=== PATIENT | female | born 1945 | race Caucasian/White ===

== ENCOUNTER 2018-06-27 07:07 | Day surgery (SDC) | payer OTHER, SELFPAY ==
[2018-06-27 07:33] VITALS: BP 165/77; PULSE 87; RESP 15; TEMP 36.1; O2SAT 100; BMI 20.2
--- NOTE | 2018-06-27 08:36 | PM.PREOP ---
Pre-operative Note Interval Note History & Physical reviewed/Exam performed by Physician: No Changes to H&P: No
--- NOTE | 2018-06-27 08:42 | PM.OP.1 ---
Operative Date/Time/Diagnoses Pre-op diagnosis: Nuclear cataract right eye Procedure & Clinicians Procedure: Cataract Surgery Same procedure as scheduled: Yes Surgeon: Aayush Craig Anesthesia Type: MAC +/- and Sedation Operative Notes Procedure in detail: Patient brought to the operating suite. Tetracaine drops placed in the right eye. Marking instrument was used to austin the vertical and horizontal meridians. Patient was prepped and draped in sterile manner. Wire lid speculum was placed in the eye. Marking instrument was used to austin the 70 degree meridian. Betadine drops were placed on the eye. This was irrigated. Lidocaine jelly was placed on the eye. A paracentesis port was created with a side-port blade. 0.1 mL 1% preservative free lidocaine was injected into the anterior chamber. The anterior chamber was deepened with viscoelastic. 2.6 mm keratome was used to create a temporal clear corneal incision. Cystotome and Utrata forceps were used to create continuous tear capsulorrhexis. Balanced salt solution was used to hydro dissect the nucleus. The phacoemulsification handpiece was inserted and the nucleus was removed using the stop and chop technique. The irrigation aspiration handpiece was inserted and the remaining cortex was removed. Anterior chamber was deepened with viscoelastic. An Onlan [id number] intraocular lens with a power of 27.5 was injected into the capsular bag. Irrigation aspiration handpiece was inserted and the remaining viscoelastic was removed. The lens was rotated to the 70 degree meridian. Incision was hydrated with balanced salt solution and found to be leak free with pressure with Weck-Yolanda sponges. 0.1 mL Vigamox injected anterior chamber. 0.3 mL Kenalog 10 mg was injected subconjunctivally. Lid speculum was removed. The patient left the operating room in excellent condition. Complications: none Condition: stable Disposition: same day surgery
--- NOTE | 2018-06-27 08:51 | SUR.OPER ---
Supine on eye stretcher, head on extension cradle secured with tape. Arms tucked at sides with blanket. Pillow under knees.
[2018-06-27] MEDS: TRIAMCINOLONE 50 MG/5 ML VIAL INJ (08:54)
[2018-06-27] MEDS: CHONDROIDTIN/SOD HYALURONATE 1.05 ML SYRINGE INTRAOCULA (08:54)
[2018-06-27] MEDS: MOXIFLOXACIN OPHTH DROPS 3 ML BOTTLE 2 DROPS INJ (08:54)
[2018-06-27] MEDS: PHENYLEPHRINE/LIDOCAINE VIAL (OR) 0.2 ML EYE-OP (08:54)
[2018-06-27] MEDS: TETRACAINE 0.5% OPHTH DROPS 4 ML 2 DROPS EYE-OP (08:55)
[2018-06-27] MEDS: LIDOCAINE JELLY 2% 5 ML 1 APPLIC TOP (08:55)
[2018-06-27] MEDS: BALANCED SALT IRRIG SOLN NO.2 500 ML, EPINEPHrine 1 MG IRR (08:55)
== END 2018-06-27 09:23 ==
LOC: OR 07:08
PROVIDERS: PCP Internal Medicine; Visit Provider Ophthalmology
DX: H25.11 Age-related nuclear cataract, right eye (principal); I10 Essential (primary) hypertension
CPT/HCPCS: J0171; J2250; J3010; J3301; V2787

== ENCOUNTER 2018-07-11 11:24 | Day surgery (SDC) | payer OTHER, SELFPAY ==
[2018-07-11] MEDS: PROPARACAINE 0.5% OPHTH SOL 2 DROPS EYE-OP (12:00)
[2018-07-11 12:05] VITALS: BP 157/81; PULSE 77; RESP 16; TEMP 36.4; O2SAT 100; BMI 20.2
[2018-07-11] MEDS: CATARACT EYE COMPOUND (10 DROPS/SYRINGE) 3 DROPS EYE-OP (12:13)
--- NOTE | 2018-07-11 12:45 | PM.PREOP ---
Pre-operative Note Interval Note History & Physical reviewed/Exam performed by Physician: No Changes to H&P: No
--- NOTE | 2018-07-11 12:45 | PM.OP.1 ---
Operative Date/Time/Diagnoses Pre-op diagnosis: Nuclear Cataract Left eye Post-op diagnosis: same Procedure & Clinicians Surgeon: Aayush Craig Anesthesia Type: MAC +/- and Sedation Operative Notes Procedure in detail: Patient brought to the operating suite. Tetracaine drops placed in the left eye. The marking instrument was used to austin the vertical and horizontal meridians. Patient was prepped and draped in sterile manner. Wire lid speculum was placed in the eye. Betadine drops were placed on the eye. This was irrigated. Lidocaine jelly was placed on the eye. A paracentesis port was created with a side-port blade. 0.1 mL 1% preservative free lidocaine was injected into the anterior chamber. The anterior chamber was deepened with viscoelastic. 2.6 mm keratome was used to create a temporal clear corneal incision. Cystotome and Utrata forceps were used to create continuous tear capsulorrhexis. Balanced salt solution was used to hydro dissect the nucleus. The phacoemulsification handpiece was inserted and the nucleus was removed using the stop and chop technique. The irrigation aspiration handpiece was inserted and the remaining cortex was removed. Anterior chamber was deepened with viscoelastic. An Nolan [id number] intraocular lens with a power of 27.0 was injected into the capsular bag. Irrigation aspiration handpiece was inserted and the remaining viscoelastic was removed. The lens was rotated to the 90 degree meridian. Incision was hydrated with balanced salt solution and found to be leak free with pressure with Weck-Yolanda sponges. 0.1 mL Vigamox injected anterior chamber. 0.3 mL Kenalog 10 mg was injected subconjunctivally. Lid speculum was removed. The patient left the operating room in excellent condition. Complications: none Condition: stable Disposition: same day surgery
[2018-07-11] MEDS: TRIAMCINOLONE 50 MG/5 ML VIAL INJ (12:53)
[2018-07-11] MEDS: MOXIFLOXACIN OPHTH DROPS 3 ML BOTTLE 2 DROPS INJ (12:53)
[2018-07-11] MEDS: PHENYLEPHRINE/LIDOCAINE VIAL (OR) 0.2 ML EYE-OP (12:53)
[2018-07-11] MEDS: LIDOCAINE JELLY 2% 5 ML 1 APPLIC TOP (12:54)
[2018-07-11] MEDS: CHONDROIDTIN/SOD HYALURONATE 1.05 ML SYRINGE INTRAOCULA (12:54)
[2018-07-11] MEDS: TETRACAINE 0.5% OPHTH DROPS 4 ML 2 DROPS EYE-OP (12:54)
[2018-07-11] MEDS: BALANCED SALT IRRIG SOLN NO.2 500 ML, EPINEPHrine 1 MG IRR (12:55)
[2018-07-11 13:10] VITALS: BP 131/69; PULSE 56; RESP 16; TEMP 36.9; O2SAT 100
== END 2018-07-11 13:28 ==
PROVIDERS: PCP Internal Medicine; Visit Provider Ophthalmology
DX: H25.12 Age-related nuclear cataract, left eye (principal); I10 Essential (primary) hypertension
CPT/HCPCS: J0171; J2250; J3301; V2787

== ENCOUNTER → 2018-09-04 11:11 | Outpatient (CLI) | payer OTHER, SELFPAY ==
--- NOTE | 2018-09-04 | DI.MG.S_ITS ---
BILATERAL DIGITAL SCREENING MAMMOGRAM 3D/2D WITH CAD: 09/04/2018 CLINICAL: Routine screening. Comparison is made to exams dated: 08/29/2017 mammogram, 05/16/2015 mammogram, and 04/30/2014 mammogram - [facility]. There are scattered fibroglandular elements in both breasts. Current study was also evaluated with a Computer Aided Detection (CAD) system. No significant masses, calcifications, or other findings are seen in either breast. There has been no significant interval change. IMPRESSION: NEGATIVE There is no mammographic evidence of malignancy. A 1 year screening mammogram is recommended. This exam was interpreted at Station ID: [id number]. NOTE: For mammograms, a report in lay terms will be sent to the patient. Approximately 15% of breast malignancies will not be visualized mammographically. In the management of a palpable breast mass, a negative mammogram must not discourage biopsy of a clinically suspicious lesion. Electronically Signed By: Christian abreu/gallo:09/04/2018 18:24:04 letter sent: Normal Exam ACR BI-RADS Category 1: Negative 3341F
== END ==
PROVIDERS: PCP Internal Medicine; Visit Provider Internal Medicine
DX: Z12.31 Encounter for screening mammogram for malignant neoplasm of breast (principal)
CPT/HCPCS: 77063; 77067

== ENCOUNTER → 2018-11-17 09:45 | Outpatient (CLI) | payer OTHER, SELFPAY | PROVIDERS: PCP Internal Medicine; Visit Provider Internal Medicine | DX: M81.0 Age-related osteoporosis without current pathological fracture (principal); Z78.0 Asymptomatic menopausal state; Z85.43 Personal history of malignant neoplasm of ovary; Z87.891 Personal history of nicotine dependence | CPT/HCPCS: 77080 ==

== ENCOUNTER → 2019-06-21 18:48 | Outpatient (ROUT) | payer OTHER, SELFPAY ==
[2019-06-21 19:19] LABS: Blood Urea Nitrogen 27 mg/dL (7-17); Calcium 9.4 mg/dL (8.4-10.2); Carbon Dioxide 27 mmol/L (22-32); Chloride 98 mmol/L (98-107); Estimated Glomerular Filt Rate > 60.0 mL/min (>60); Glucose 91 mg/dL (80-110); HEMOLYSIS 20 (0-50); Potassium 4.4 mmol/L (3.4-5.1); Sodium 134 mmol/L (137-145)
== END ==
PROVIDERS: PCP Internal Medicine; Visit Provider Internal Medicine
DX: I10 Essential (primary) hypertension (principal)
CPT/HCPCS: 80048

== ENCOUNTER → 2020-05-14 11:21 | Outpatient (CLI) | payer OTHER, SELFPAY ==
[2020-05-14 11:43] LABS: Bacteria Urine None Seen; RBC Urine None Seen (0-5/HPF); WBC Urine None Seen (0-5/HPF)
[2020-05-14 12:08] LABS: Appearance Urine UA CLEAR; Bilirubin Urine UA NEGATIVE (NEGATIVE); Color Urine UA YELLOW; Glucose Urine UA NEGATIVE (Negative); Ketones Urine UA NEGATIVE (NEGATIVE); Leukocyte Esterase Urine UA NEGATIVE (NEGATIVE); Nitrite Urine UA NEGATIVE (Negative); Occult Blood Urine UA NEGATIVE (Negative); Protein Urine UA NEGATIVE (Negative); Specific Gravity Urine UA <=1.005 (1.000-1.035); Urobilinogen Urine UA 0.2 E.U./dL (0.2)
[2020-05-14 12:17] LABS: Culture Indicated Urine Cult Not Indicated; Urine Comments Microscopic Normal
[2020-05-14 12:35] LABS: Add Manual Diff / Slide Review NO; Basophils Absolute Auto 100 /uL (0-100); Basophils Percent Auto 1.9 % (0-2); Eosinophils Absolute Auto 100 /uL (0-450); Eosinophils Percent Auto 1.9 % (2-4); Hematocrit 37.6 % (36-46); Hemoglobin 12.6 g/dL (12.0-16.0); Lymphocytes Absolute Auto 1000 /uL (1100-4500); Lymphocytes Percent Auto 25.8 % (25-40); Mean Corpuscular HGB Conc 33.4 % (30-36); Mean Corpuscular Hemoglobin 33.9 PG (26-34); Mean Corpuscular Volume 101.5 fL (80-100); Monocytes Absolute Auto 500 /uL (0-900); Monocytes Percent Auto 11.6 % (3-14); Neutrophils Absolute Auto 2300 /uL (1500-7000); Neutrophils Percent Auto 58.8 % (50-75); Platelet Count 205 X10^3/uL (150-400); Red Blood Cell Count 3.71 X10^6/uL (4.0-5.2); Red Cell Distribution Width 14.4 % (11.6-14.8); White Blood Cell Count 3.9 X10^3/uL (4.5-11.0)
[2020-05-14 12:41] LABS: Hemoglobin A1C% w Est Avg Glu 5.4 % (4.0-6.0)
[2020-05-14 12:44] LABS: BUN Creatinine Ratio 28.2 (6-22); Blood Urea Nitrogen 20 mg/dL (7-17); Calcium 9.1 mg/dL (8.4-10.2); Carbon Dioxide 31 mmol/L (22-32); Chloride 98 mmol/L (98-107); Estimated Glomerular Filt Rate > 60.0 mL/min (>60); Glucose 100 mg/dL (80-110); HEMOLYSIS < 15 (0-50); Potassium 4.7 mmol/L (3.4-5.1); Sodium 131 mmol/L (137-145)
[2020-05-14 13:02] LABS: Erythrocyte Sedimentation Rate 12 MM/HR (0-20)
== END ==
PROVIDERS: PCP Internal Medicine; Referring Provider Orthopaedic Surgery; Visit Provider Orthopaedic Surgery
DX: Z01.818 Encounter for other preprocedural examination (principal); R73.9 Hyperglycemia, unspecified; Z01.812 Encounter for preprocedural laboratory examination; N39.0 Urinary tract infection, site not specified
CPT/HCPCS: 36415; 80048; 81001; 83036; 85025; 85651; 93005; 93010

== ENCOUNTER → 2020-06-30 08:30 | Outpatient (CLI) | payer MEDICARE, SELFPAY ==
[2020-06-30 11:10] LABS: COVID19 -Nasal RAPID Negative (Negative)
== END ==
PROVIDERS: PCP Internal Medicine; Visit Provider Physician Assistant
DX: Z20.822 Contact with and (suspected) exposure to COVID-19 (principal)
CPT/HCPCS: 87635; C9803

== ENCOUNTER 2020-07-01 08:15 | Day surgery (SDC) | payer MEDICARE, SELFPAY ==
[2020-07-01] VITALS (8 sets, daily range): BP systolic 95–157; BP diastolic 44–80; PULSE 83–93; RESP 14–20; TEMP 36.4–36.7; O2SAT 95–100; BMI 20.7
--- NOTE | 2020-07-01 06:00 | DI.RAD.S_ITS ---
PROCEDURE: XR KNEE RT 1TO2V INDICATIONS: right total knee TECHNIQUE: 2 view(s) of the knee acquired. COMPARISON: [facility], CR, XR KNEE ARTHRITIC SERIES BI, 05/09/2020, 9:46. [facility], CR, XR KNEE 4+ VIEWS BILATERAL, 11/21/2019, 10:36. FINDINGS: Bones: Patient is status post knee joint arthroplasty. Hardware components are in expected positions. Visualized bony structures are intact. Soft tissues: Overlying postoperative changes are noted. IMPRESSION: Expected postsurgical changes after total knee arthroplasty. Dictated by: Len Conner M.D. on 07/01/2020 at 17:06 Approved by: Len Conner M.D. on 07/01/2020 at 17:07
[2020-07-01] MEDS: VANCOMYCIN 1,000 MG/200 ML PIGGYBACK 200 MG IV (08:40)
[2020-07-01] MEDS: LACTATED RINGERS 1,000 ML 42 ML IV (08:41)
[2020-07-01] MEDS: ACETAMINOPHEN 325 MG TABLET 975 MG PO (09:03)
[2020-07-01] MEDS: PREGABALIN 75 MG CAPSULE PO (09:04)
--- NOTE | 2020-07-01 09:22 | P.OP_ITS ---
Operative Date/Time/Diagnoses Date of procedure: 07/01/20 Time of procedure: 09:57 Pre-op diagnosis: right knee osteoarthritis Post-op diagnosis: same Procedure & Clinicians Procedure: right total knee arthroplasty Same procedure as scheduled: Yes Indications: The patient has had progressively worsening right knee pain with radiographic changes consistent with arthritis. Non-operative management has failed and the patient has requested total knee replacement. The risks, benefits and alternatives to surgery were discussed with the patient prior to proceeding. Risks discussed included, but were not limited to, failure to relieve pain, stiffness, infection, nerve damage, deep venous thrombosis, pulmonary embolism, stroke, coma, heart attack, permanent paralysis and , as well as the potential need for eventual revision of the prosthetic. Surgeon: Natalya Rico Breeding Manager: Marco Berman Anesthesia Type: General and Spinal Operative Notes Findings: severe right knee arthritis, very soft bone with very severe osteoporosis, good stability Closure Type: primary Specimen(s): none sent Prosthetic devices, grafts, tissues, transplants, or devices: Rico and Nephew Cade BCS 2 size 5 femur, size 3 tibia, +10 poly, 35 by 7-1/2 mm patella Estimated Blood Loss (mL): 250 Blood products transfused: none Tourniquet time (min): 62 Procedure in detail: The patient was seen in the pre-operative area, where the patient identified the right knee as the operative site and this was marked with my initials. The patient received pre-operative antibiotics, and was taken to the operating room and placed on the operative table in the supine position. After satisfactory anesthesia, a real time operator out was performed. The right leg was encircled with a tourniquet about the proximal thigh, and the leg was prepared from the toes to the tourniquet with ChloroPrep in the usual fashion and draped through sterile drapes. The leg was elevated and exsanguinated with Eschmark bandage and the tourniquet inflated to [250] mmHg pressure. The knee was approached through an approximately 18 cm incision centered over the patella and carried into the knee through a medial parapatellar arthrotomy. A portion of the medial and lateral meniscus was resected. Soft tissue was carefully mobilized around the patella the patella was measured with a caliper. Bone was resected from the patella and the patellar height was reconstituted with up an appropriate sized patellar component. A cover was then placed on the patella. A small amount of additional medial and lateral meniscus was resected. The distal femur was cut at 5?. A [+2] cut was used. It looked like an appropriate distal femoral cut and the cut was made without difficulty. An extramedullary guide was used for the tibial cut. 10 mm was resected off the least affected side.The tibia was prepared. The rotation was assessed. The patient was placed in extension residual medial and lateral meniscus as well as any residual bone was carefully resected. [No] additional tibia was resected. Hemostasis was achieved especially posteriorly. Additional local was injected into the posterior capsule. The extension gap was assessed and additional releases for gap balancing were performed as necessary. It was checked with the gap watch manufacturing supervisor. The femoral component was trial was placed and the notch was finished. The rotation was assessed and the appropriate size femoral guide was placed on the distal femur and finishing cuts were made. There was no evidence of notching. The anterior, posterior and chamfer cuts were then made. The posterior osteophytes and soft tissues were then removed. The posterior capsule was injected with part of a mixture of 60 ml 0.25% Marcaine mixed with 20 ml Exparel for post operative pain control. The remainder of this mixture was injected into the capsule and subcutaneous tissues during cement curing.l tibial and femoral components were then placed and the knee placed through a range of motion. Range of motion was [0-130], with good stability throughout the range. The trials were then removed, and the tibia was finished. The bone was prepared with pulsatile lavage, and dried with a sponge. she had severe softening of both her femur and her tibia. There were some cystic changes in both and the bone was meticulously packed with bone graft from the resected pieces of bone.Cement was applied and the final prosthetics placed. Excess cement was removed during and after cement curing. A brief Betadine soak was performed. After confirming there was no extruded cement posteriorly, the final tibial insert was placed. The knee was copiously irrigated and the tourniquet deflated. Hemostasis was obtained with the Bovie cautery. The capsule was closed with interrupted nonabsorbable suture. The subcutaneous layer was closed with barbed sutures, and the skin with a running 3-0 V-Lock suture and Surgical glue. An Aquacel Ag dressing was applied and the patient was taken to recovery having tolerated the procedure well. Complications: none Post-operative Condition: stable Disposition: Acute Care Plan for aftercare: The patient will be maintained on a standard total knee replacement protocol with weight bearing as tolerated. The patient will receive aspirin and sequential compression devices for DVT prophylaxis. The patient will be discharged home when safe for the home environment.
--- NOTE | 2020-07-01 09:22 | PM.PREOP ---
Pre-operative Note COVID-19 COVID-19 status: Negative Interval Note History & Physical reviewed/Exam performed by Physician: Yes Changes to H&P: No
[2020-07-01] MEDS: CLINDAMYCIN 900 MG/50 ML PIGGYBACK 50 MG IV (10:23)
[2020-07-01] MEDS: BUPIVACAINE LIPOSOME 266 MG/20 ML VIAL INJ (10:35)
[2020-07-01] MEDS: TRANEXAMIC ACID 1,000 MG VIAL 2000 MG INJ ×2 (10:35→11:42)
[2020-07-01] MEDS: BUPIVACAINE 0.25% W/ EPI (PF) 10 ML VIAL 20 ML INJ (10:35)
--- NOTE | 2020-07-01 10:39 | SUR.OPER ---
Supine on padded OR bed. Pillow under head, arms secured on padded armboards <90 degree abduction. Safety belt across torso. Non-operative leg secured with tape over blanket over lower leg. Operative leg secured in DeMayo/Aaron positioner. Foam padded brace at thigh of operative leg.
[2020-07-01] MEDS: LACTATED RINGERS 1,000 ML 100 ML IV (13:59)
[2020-07-01] MEDS: IBUPROFEN 400 MG TABLET PO (13:59)
[2020-07-01] MEDS: OXYCODONE IR 5 MG TABLET PO (15:19)
[2020-07-01] MEDS: ACETAMINOPHEN 325 MG TABLET 650 MG PO (15:19)
--- NOTE | 2020-07-01 15:22 | PT.IIE ---
Current Diagnoses Unilateral primary osteoarthritis, right knee (07/01/20) Surgery Performed Operation Date: 07/01/20 10:15 Actual Procedures p Total Knee Arthroplasty(Right) - Natalya Rico MD Surgical History (Last Updated 06/24/20 @ 10:30 by Lurdes Espitia, RN) History of hysterectomy (~2016) History of phacoemulsification of cataract of both eyes with intraocular lens implantation Status post bilateral salpingo-oophorectomy (BSO) (04/30/16) Medical History (Last Updated 06/24/20 @ 10:30 by Lurdes Espitia, RN) Hypertension Mixed connective tissue disease Ovarian cancer Primary osteoarthritis of right knee Physical Therapy Inpatient Evaluation/Re-Eval M1 PT/OT-IP Prior Functional Status Start: 07/01/20 15:05 Freq: NEEDED Status: Active Protocol: Document 07/01/20 15:05 AMB (Rec: 07/01/20 15:20 AMB [email or web address]) Medical Review Prior Functional Status Medical History Reviewed Yes Mobility and Gait Independent with community mobility Social History Household Members spouse Living Arrangements House Number of Floors (Floors) One Floor Number of Stairs To Enter/Railing? 2- bilateral rails Home Environment Walk in Shower Home Equipment Front Wheel Walker,Shower Seat with Backrest Employment Status Retired M2 PT-IP Current Condition Start: 07/01/20 15:05 Freq: NEEDED Status: Active Protocol: Document 07/01/20 15:05 AMB (Rec: 07/01/20 15:20 AMB [email or web address]) Physical Therapy Current Condition Current Condition Evaluation Date 07/01/20 Treatment Diagnosis R TKA Onset Date 07/01/20 Weight Bearing Status Weight Bearing Status Weight Bear as Tolerated M3 PT-IP Subjective Start: 07/01/20 15:05 Freq: NEEDED Status: Active Protocol: Document 07/01/20 15:05 AMB (Rec: 07/01/20 15:20 AMB [email or web address]) Subjective Physical Therapy Visit Type Type Initial Evaluation Visit Start Time 14:20 Visit Stop Time 14:55 Total Visit Minutes 35 Therapy Pain Assessment Pain When Pain Assessed During Mobility Pain Present Pain Present Pain Reported Location right knee Intensity 4 Scale Used Numeric (0 - 10) M4 PT-IP Mobility and Gait Start: 07/01/20 15:05 Freq: NEEDED Status: Active Protocol: Document 07/01/20 15:05 AMB (Rec: 07/01/20 15:20 AMB [email or web address]) PT-Bed Mobility Assessment Rolling Type of Rolling Roll to Left Level of Assist Independent Supine to Sit Supine to Sit Independent,Head of Bed Elevated Sit to Supine Sit to Supine Independent,Head of Bed Elevated PT-Transfer Assessment Sit to and From Stand Sit to and from Stand Standby Assistance Equipment Transfer Assistive Device Gait Belt,Front Wheeled Walker Transfers Transfer Technique Stand Step Pivot Transfer Ability Level of Assist Standby Assistance Gait Assessment Gait Gait Assistance Required: Standby Assistance Distance (Feet) 100 Assistive Devices Assistive Device Gait Belt,Front Wheeled Walker Gait Deviations General Gait Pattern Antalgic,Decreased Stride Length,Step-to Gait Factors Limiting Gait Function Factors Limiting Gait Function Decreased Activity Tolerance, Decreased Strength,Limited Range of Motion,Pain Stair Climbing Assessment Evaluation Level of Assist On Stairs Standby Assistance Devices Stair Climbing Assistive Devices Left Railing,Right Railing Technique/Endurance Stair Climbing Direction Ascend and Descend Stair Climbing Technique Step to Step Number of Steps Climbed 3 Query Text: PT-Balance Assessment Sitting Balance and Reactions Static Sitting Balance Ability Normal Dynamic Sitting Balance Ability Normal Standing Balance and Reactions Static Standing Balance Ability Fair Dynamic Standing Balance Ability Fair M5 PT-IP Objective Assessments Start: 07/01/20 15:05 Freq: NEEDED Status: Active Protocol: Document 07/01/20 15:05 AMB (Rec: 07/01/20 15:20 AMB [email or web address]) Orientation Orientation/Cognition Level of Alertness Alert Gross Range of Motion Lower Extremity ROM Impairments R limited in flexion Strength Lower Extremity Strength Assessment Right Impaired Knee 3/5 Sensation Assessment Sensation Light Touch Intact M6 PT-IP Treatment Start: 07/01/20 15:05 Freq: NEEDED Status: Active Protocol: Document 07/01/20 15:05 AMB (Rec: 07/01/20 15:20 AMB [email or web address]) Physical Therapy Treatment Exercises Exercises Ankle Pumps,Quad Sets,Heel Slides,Straight Leg Raises Education Education Provided Weight Bearing Status,Post-Op Packet,Safety M7 PT-IP Assessment and Plan Start: 07/01/20 15:05 Freq: NEEDED Status: Active Protocol: Document 07/01/20 15:05 AMB (Rec: 07/01/20 15:20 AMB [email or web address]) PT Summary Assessment and Plan Potential Rehabilitation Potential Excellent Status of Condition at Evaluation Stable Summary Impairments Pain,ROM,Strength,Balance,Gait ,Activity Tolerance Assessment Summary Jhoana did very well with her physical therapy evaluation. Her blood pressure stayed good throughout the session and she denied dizziness. Her pain did get up to 4/10, and she did try to use her walker to pull up on, but was able to remember to not do so later in the session. Instructed in HEP and pt does have further outpatient PT scheduled. She was able to verbalize how she would go up her 2 TRACY at home and then did so safely here. She should be safe to go home with her when she is medically stable and does not need further PT at this time. Goals Bed Mobility Goal Independent Transfer Goal Independent Gait Goal Independent Gait Distance 300 Other Goals 2 steps to enter with bilateral railings Days to Meet Goals 2 Frequency of Treatment Frequency Of Treatment Discharge Treatment Plan Physical Therapy Treatment Plan Bed Mobility Training,Transfer Training,Gait Training, Therapeutic Exercise,Post Op Education Recommendations To Nursing Amount of Assist Needed Standby Assistance Discharge Recommendations PT Discharge Recommendations Home,Outpatient PT Transportation Needs at Discharge Private Vehicle
--- NOTE | 2020-07-01 17:31 | PC.NURSE ---
Discharge/Evening Shift Note- Patient d/c'ed home per Dr. Rico. Discharge instructions and education reviewed with patient and spouse and paperwork signed. IV line removed and bandaid applied. Patient dressed self and packed up personal belongings. Patient taken via wheelchair to private car with all personal belongings by [employer] with spouse at side at 1630.
== END 2020-07-01 16:30 | disposition home or self-care (01) ==
LOC: OR 08:18 → AC 08:18
PROVIDERS: PCP Internal Medicine; Referring Provider Orthopaedic Surgery; Visit Provider Orthopaedic Surgery
PROC: 0SRC0JZ Replacement of Right Knee Joint with Synthetic Substitute, Open Approach (ICD-10-PCS; CPT 27447; principal; 2020-07-01 10:15)
DX: M17.11 Unilateral primary osteoarthritis, right knee (principal); M35.1 Other overlap syndromes; I10 Essential (primary) hypertension; I25.10 Atherosclerotic heart disease of native coronary artery without angina pectoris
CPT/HCPCS: 27447; 73560; 97161; C1776; C9290; J2250; J2704; J3010

== ENCOUNTER → 2020-08-08 08:27 | Outpatient (CLI) | payer MEDICARE, SELFPAY ==
[2020-07-01 13:05] VITALS: BMI 20.7
--- NOTE | 2020-08-08 | DI.MG.S_ITS ---
BILATERAL DIGITAL SCREENING MAMMOGRAM 3D/2D WITH CAD: 08/08/2020 CLINICAL: Routine screening. Comparison is made to exams dated: 09/04/2018 mammogram, 08/29/2017 mammogram, and 05/16/2015 mammogram - [facility]. There are scattered fibroglandular elements in both breasts. Current study was also evaluated with a Computer Aided Detection (CAD) system. No significant masses, calcifications, or other findings are seen in either breast. There has been no significant interval change. IMPRESSION: NEGATIVE There is no mammographic evidence of malignancy. A 1 year screening mammogram is recommended. This exam was interpreted at Station ID: [id number]. NOTE: For mammograms, a report in lay terms will be sent to the patient. Approximately 15% of breast malignancies will not be visualized mammographically. In the management of a palpable breast mass, a negative mammogram must not discourage biopsy of a clinically suspicious lesion. Electronically Signed By: Jos bedolla/gallo:08/08/2020 08:56:32 letter sent: Normal Exam ACR BI-RADS Category 1: Negative 3341F
== END ==
PROVIDERS: PCP Internal Medicine; Referring Provider Internal Medicine; Visit Provider Internal Medicine
DX: Z12.31 Encounter for screening mammogram for malignant neoplasm of breast (principal)
CPT/HCPCS: 77063; 77067

== ENCOUNTER → 2020-08-26 14:10 | Outpatient (CLI) | payer MEDICARE, SELFPAY ==
[2020-07-01 13:05] VITALS: BMI 20.7
--- NOTE | 2020-08-26 14:12 | DI.RAD.S_ITS ---
PROCEDURE: XR DEXA AXIAL SKELETON INDICATIONS: Age-related osteoporosis COMPARISON: [facility], CR, XR DEXA AXIAL SKELETON, 11/17/2018, 10:08. FINDINGS: This blank DEXA report has been sent in error by the PACS system. The correct and complete report will be forthcoming in 1-2 days. Thank you for your patience and understanding. Dictated by: Carli Srivastava MD, PhD on 08/26/2020 at 16:54 Approved by: Carli Srivastava MD, PhD on 08/26/2020 at 16:54
== END ==
PROVIDERS: PCP Internal Medicine; Referring Provider Internal Medicine; Visit Provider Internal Medicine
DX: M85.851 Other specified disorders of bone density and structure, right thigh (principal); Z78.0 Asymptomatic menopausal state; Z85.43 Personal history of malignant neoplasm of ovary; Z90.722 Acquired absence of ovaries, bilateral; Z87.891 Personal history of nicotine dependence
CPT/HCPCS: 77080

== ENCOUNTER → 2021-08-26 10:15 | Outpatient (CLI) | payer MEDICARE, SELFPAY ==
[2020-07-01 13:05] VITALS: BMI 20.7
--- NOTE | 2021-08-26 | DI.MG.S_ITS ---
BILATERAL DIGITAL SCREENING MAMMOGRAM 3D/2D WITH CAD: 08/26/2021 CLINICAL: Routine screening. Comparison is made to exams dated: 08/08/2020 mammogram, 09/04/2018 mammogram, and 08/29/2017 mammogram - [facility]. There are scattered fibroglandular elements in both breasts. Current study was also evaluated with a Computer Aided Detection (CAD) system. No significant masses, calcifications, or other findings are seen in either breast. There has been no significant interval change. IMPRESSION: NEGATIVE There is no mammographic evidence of malignancy. A 1 year screening mammogram is recommended. This exam was interpreted at Station ID: [id number]. NOTE: For mammograms, a report in lay terms will be sent to the patient. Approximately 15% of breast malignancies will not be visualized mammographically. In the management of a palpable breast mass, a negative mammogram must not discourage biopsy of a clinically suspicious lesion. Electronically Signed By: Yasemin ware/gallo:08/26/2021 11:53:10 letter sent: Normal Exam ACR BI-RADS Category 1: Negative 3341F
== END ==
PROVIDERS: PCP Internal Medicine; Referring Provider Internal Medicine; Visit Provider Internal Medicine
DX: Z12.31 Encounter for screening mammogram for malignant neoplasm of breast (principal)
CPT/HCPCS: 77063; 77067

== ENCOUNTER → 2021-08-31 11:37 | Outpatient (CLI) | payer MEDICARE, SELFPAY ==
[2020-07-01 13:05] VITALS: BMI 20.7
--- NOTE | 2021-08-31 | DI.MRI.S_ITS ---
PROCEDURE: MR LUMBAR SPINE WO CON INDICATIONS: Low back pain, unspecified TECHNIQUE: Noncontrast sagittal T1 spin echo and T2 fast echo, sagittal STIR, and T2 fast spin echo through the lumbar spine. In cases with scoliosis, additional coronal T2 fast spin echo may be performed. COMPARISON: None. FINDINGS: Image quality: Diagnostic, with note made of motion artifact. Alignment and Curvature: There is mild grade 1 L4-5 anterolisthesis. No definite associated pars defects are seen. Bone Marrow: Marrow is of normal overall signal. No acute vertebral body compression fractures. Note is made of fatty metaplasia with sacral ala on both sides. Spinal Cord: Conus medullaris terminates at the L1 level. Visualized cord demonstrates normal signal and size. Paraspinous Soft Tissues: No paravertebral masses. T12-L1: Normal appearance. L1-L2: Normal appearance. L2-L3: No significant abnormality is seen. L3-L4: The disc height is well-preserved. Loss of disc signal is seen at this level. Mild generalized disc bulge is seen. Mild facet joint hypertrophy is seen. No significant neural foraminal narrowing is seen. Mild central canal narrowing is seen. L4-L5: Mild loss of disc height is seen. Loss of disc signal is seen. Mild to moderate disc bulge is seen, which is eccentric to the left. Prominent facet hypertrophy is seen at this level. There is moderate right-sided and at least moderate left-sided neural foraminal narrowing. Moderate central canal narrowing is seen. L5-S1: The disc height is well-preserved. Loss of disc signal is seen at this level. Minimal to mild disc bulge is seen, with a mild central disc protrusion. There is a focal annular fissure seen posteriorly. Moderate facet joint hypertrophy is seen. Moderate bilateral neural foraminal narrowing is seen. No significant central canal narrowing is seen. IMPRESSION: Focal lower lumbar spine degenerative changes are seen. Dictated by: Rupert Mitchell M.D. on 08/31/2021 at 14:09 Approved by: Rupert Mitchell M.D. on 08/31/2021 at 14:13
== END ==
PROVIDERS: PCP Internal Medicine; Referring Provider Orthopaedic Surgery; Visit Provider Orthopaedic Surgery
DX: M47.816 Spondylosis without myelopathy or radiculopathy, lumbar region (principal); M47.817 Spondylosis without myelopathy or radiculopathy, lumbosacral region; M54.50 Low back pain, unspecified
CPT/HCPCS: 72148

== ENCOUNTER → 2021-09-22 12:53 | Outpatient (CLI) | payer MEDICARE, SELFPAY ==
[2020-07-01 13:05] VITALS: BMI 20.7
[2021-09-22 13:26] LABS: Appearance Urine UA CLEAR; Bilirubin Urine UA NEGATIVE (NEGATIVE); Color Urine UA YELLOW; Glucose Urine UA NEGATIVE (Negative); Ketones Urine UA NEGATIVE (NEGATIVE); Leukocyte Esterase Urine UA 1+ (NEGATIVE); Nitrite Urine UA NEGATIVE (Negative); Occult Blood Urine UA NEGATIVE (Negative); Protein Urine UA NEGATIVE (Negative); Urobilinogen Urine UA 0.2 E.U./dL (0.2)
[2021-09-22 13:39] LABS: RBC Urine None Seen (0-5/HPF); pH Urine UA 7.5 (4.5-8.0)
[2021-09-22 13:40] LABS: Amorphous Sediment Urine 1+; Bacteria Urine Occasional (0-1); Culture Indicated Urine Specimen Cultured; Squamous Epithelial Cell Urine 0-1 /HPF (0-5/HPF); WBC Urine 5-10/HPF (0-5/HPF)
[2021-09-22 14:36] LABS: Add Manual Diff / Slide Review NO; Basophils Absolute Auto 100 /uL (0-100); Basophils Percent Auto 1.3 % (0-2); Eosinophils Absolute Auto 0 /uL (0-450); Eosinophils Percent Auto 0.8 % (2-4); Hematocrit 38.8 % (36-46); Hemoglobin 13.1 g/dL (12.0-16.0); Lymphocytes Absolute Auto 1200 /uL (1100-4500); Lymphocytes Percent Auto 24.7 % (25-40); Mean Corpuscular HGB Conc 33.8 % (30-36); Mean Corpuscular Hemoglobin 33.1 PG (26-34); Monocytes Absolute Auto 400 /uL (0-900); Monocytes Percent Auto 8.8 % (3-14); Neutrophils Absolute Auto 3200 /uL (1500-7000); Neutrophils Percent Auto 64.4 % (50-75); Platelet Count 209 X10^3/uL (150-400); Red Blood Cell Count 3.96 X10^6/uL (4.0-5.2); Red Cell Distribution Width 14.5 % (11.6-14.8)
[2021-09-22 14:55] LABS: Hemoglobin A1C% w Est Avg Glu 5.4 % (4.0-6.0)
[2021-09-22 14:56] LABS: BUN Creatinine Ratio 17.2 (6-22); Blood Urea Nitrogen 15 mg/dL (7-17); Calcium 9.5 mg/dL (8.4-10.2); Carbon Dioxide 31 mmol/L (22-32); Chloride 101 mmol/L (98-107); Estimated Glomerular Filt Rate > 60 mL/min (>60); Glucose 94 mg/dL (80-110); HEMOLYSIS < 15 (0-50); Potassium 4.2 mmol/L (3.4-5.1); Sodium 138 mmol/L (137-145)
== END ==
PROVIDERS: PCP Internal Medicine; Referring Provider Orthopaedic Surgery; Visit Provider Orthopaedic Surgery
DX: Z01.818 Encounter for other preprocedural examination (principal); R73.9 Hyperglycemia, unspecified; Z01.812 Encounter for preprocedural laboratory examination; N39.0 Urinary tract infection, site not specified
CPT/HCPCS: 36415; 80048; 81001; 83036; 85025; 87077; 87086; 87186; 93005

== ENCOUNTER → 2021-10-09 13:21 | Outpatient (CLI) | payer MEDICARE, SELFPAY ==
[2020-07-01 13:05] VITALS: BMI 20.7
[2021-10-09 14:13] LABS: COVID19 -Nasal RAPID Negative (Negative)
== END ==
PROVIDERS: PCP Internal Medicine; Visit Provider Family Medicine Sleep Medicine
DX: Z20.822 Contact with and (suspected) exposure to COVID-19 (principal)
CPT/HCPCS: 87635; C9803

== ENCOUNTER 2021-10-12 10:29 | Day surgery (SDC) | payer MEDICARE, SELFPAY ==
[2020-07-01 13:05] VITALS: BMI 20.7
--- NOTE | 2021-10-12 | PATH_ITS ---
[facility] Accession Number: [id number] . 01 Material submitted: . colon - ASCENDING COLON BIOPSY X8 . 02 Diagnosis: Ascending Colon Biopsy x8: Multiple (approximately seven) portions of tubular adenoma. [facility] 10/14/2021 0938 Local . 02 Electronically signed: . Moni Dumont MD, Pathologist NPI- [id number] . 01 Gross description: . ASCENDING COLON BIOPSY X8: Received in formalin are multiple fragment(s) of andrade, soft tissue measuring 0.8 x 0.7 x 0.3 cm in aggregate submitted entirely in 1 cassette(s) /QBJ 10/13/202128 Local . 02 Pathologist provided ICD-10: Z86.010, K63.5 . 02 CPT . 785121 Specimen Comment: A courtesy copy of this report has been sent to [facility] Pathology Performed at: 01 [facility] Cytology [address] [facility] [place], [place], [place] [id number] MD Reza Rhodes MD Phone: [phone] Performed at: 02 [facility] [address] [place], [place] [id number] MD Kandace Healy MD Phone: [phone]
[2021-10-12 11:06] VITALS: BP 155/69; PULSE 87; RESP 16; TEMP 36.9; O2SAT 100
--- NOTE | 2021-10-12 11:15 | PM.HP.1 ---
History of Present Illness History of Present Illness Date Patient Seen: 10/12/21 Time Patient Seen: 11:15 Chief complaint: SDC Narrative: Personal history of colon polyps. Was recommended for 3 year follow-up. Patient History Medical History (Updated 10/12/21 @ 10:54 by Gerardo Zayas RN) Failed total right knee replacement Hypertension Mixed connective tissue disease Ovarian cancer Primary osteoarthritis of right knee Surgical History History of hysterectomy (~2017) History of phacoemulsification of cataract of both eyes with intraocular lens implantation Status post bilateral salpingo-oophorectomy (BSO) (04/30/16) Family & Social History Social History: household members spouse Tobacco & Substance use: Smoking Status Former smoker alcohol intake current alcohol intake frequency 0-2 drinks per day Substance Use Type does not use Meds Home Medications and Allergies Home Medications Medication Instructions Recorded Confirmed Type cholecalciferol (vitamin D3) 25 1,000 mg PO QDAY #0 08/23/11 10/12/21 History mcg (1,000 unit) tablet (Vitamin D3) amlodipine 5 mg tablet (Norvasc) 5 mg PO QDAY #0 04/27/16 10/12/21 History hydroxychloroquine 200 mg tablet 2 tab PO Q OTHER DAY #0 04/27/16 10/12/21 History (Plaquenil) acetaminophen 650 mg 1,300 mg PO Q12H 06/24/20 10/12/21 History tablet,extended release biotin 5,000 mcg disintegrating 10,000 mcg PO DAILY 06/24/20 10/12/21 History tablet folic acid 1 mg tablet 1 mg PO DAILY 06/24/20 10/12/21 History hydroxychloroquine 200 mg tablet 200 mg PO DAILY 06/24/20 10/12/21 History losartan 100 mg tablet 100 mg PO DAILY 06/24/20 10/12/21 History methotrexate sodium 20 mg solution 20 mg WEEKLY 06/24/20 10/12/21 History for injection naproxen sodium 220 mg tablet 220 mg PO Q8H PRN 06/24/20 10/12/21 History (Aleve) Centrum Silver Women 1 tab PO DAILY 07/01/20 10/12/21 History denosumab 60 mg/mL subcutaneous 60 mg SUBCUT [id number] 10/12/21 10/12/21 History syringe (Prolia) rosuvastatin 5 mg tablet 5 mg PO DAILY 10/12/21 10/12/21 History Allergies Allergy/AdvReac Type Severity Reaction Status Date / Time Penicillins [PENICILLINS] Allergy Severe Throat Verified 10/12/21 10:54 itching/tightness; chest tightness clindamycin [CLINDAMYCIN] AdvReac Intermediate upset Verified 10/12/21 10:54 stomach Review of Systems Review of Systems ROS: Yes All systems reviewed with the patient and are negative except as otherwise documented Exam Const General: cooperative and comfortable Orientation: alert HENMT Head: normocephalic Ears: external ears normal Nose: external nose normal Face and sinus: normal facial exam Mouth: oral mucosae normal Eyes General: appearance normal, both eyes and all related structures Neck Neck: normal visual inspection Chest Chest: normal inspection of the chest Resp Effort & Inspection: normal respiratory effort Cardio Rate: regular rate GI Inspection: normal to inspection Skin General: no rashes or lesions noted and No jaundice Neuro General: patient alert and moves all extremities Cognition: normal cognition Speech: speech normal Extrem General: no pedal edema Psych Appearance: grossly normal Assessment & Plan Assessment & Plan narrative: 76-year-old with a personal history of colon polyps. Colonoscopy is pursued today. Time Spent With Patient Critical Care time: I spent a total of [] minutes of critical care time on this patient's care today; this time is exclusive of procedural time.
--- NOTE | 2021-10-12 11:17 | PM.PREOP ---
Pre-operative Note COVID-19 COVID-19 status: Negative Result date/Date tested (Pos, Neg/Pending): 10/09/21 Criteria for continued procedure: Possibility delay results in more complex future surgery or treatment Interval Note History & Physical reviewed/Exam performed by Physician: Yes Changes to H&P: No ASA Class (for procedural sedation): II
[2021-10-12] MEDS: SODIUM CHLORIDE 0.9% 1,000 ML 84 ML IV (11:19)
--- NOTE | 2021-10-12 12:46 | PM.OP.COLON ---
Operative Date/Time/Diagnoses Date of procedure: 10/12/21 Time of procedure: 12:46 Pre-op diagnosis: Colon polyp history Post-op diagnosis: same Procedure & Clinicians Study performed: Colonoscopy with hot snare polypectomy cold snare polypectomy and cold forceps polypectomy. Same procedure as scheduled: Yes Indications: Colon polyp history Surgeon: Joshua Betancourt Procedure Notes SCOAP/Timeout: Done Procedure in detail: After the risks and benefits were explained, written and verbal informed consent was obtained. The patient was brought into the procedure room and placed into the left lateral decubitus position. Please see nurse office support notes for sedation details. Digital rectal examination was accomplished. The scope was introduced into the patient and advanced under direct visualization to the cecum as identified by the appendiceal orifice and ileocecal valve. The scope was slowly withdrawn to carefully examine the mucosa for any defects or lesions. Comprehensive imaging was accomplished throughout the rectum including the dentate line. The colon was decompressed, the scope was then removed from the patient who tolerated the procedure well. Pediatric colonoscope Bowel prep adequate Scope withdrawal time: 21 minutes Sedation minutes: 36 Complications: none Impression: Patient had some diverticulosis in the sigmoid. Patient had very challenging avocation through the sigmoid secondary to tortuosity. In the right colon there were 8 polyps all very small removed with a combination of cold forceps cold snare and where there were 2 small polyps very close together we utilized hot snare. No additional significant pathology appreciated throughout. Endoscopic diagnosis 1. Diverticulosis 2. Grade 2-3 internal hemorrhoids 3. Multiple small colon polyps Post-procedure Plan for aftercare: 1. Await histopathology 2. Repeat colonoscopy would typically be suggested for 3 years time. However this places the patient at age 79 and would certainly not be required at that point. Disposition: PACU
[2021-10-12 12:50] VITALS: BP 105/46; PULSE 72; RESP 14; TEMP 36.9; O2SAT 96
[2021-10-12 12:55] VITALS: BP 110/63; PULSE 76; RESP 17; O2SAT 97
[2021-10-12 12:59] VITALS: BP 129/60; PULSE 74; RESP 14; O2SAT 98
[2021-10-12 13:08] VITALS: BP 130/57; PULSE 72; RESP 16; TEMP 36.8; O2SAT 97
== END 2021-10-12 13:10 | disposition home or self-care (01) ==
PROVIDERS: PCP Internal Medicine; Referring Provider Internal Medicine Gastroenterology; Visit Provider Internal Medicine Gastroenterology
PROC: 0DJD8ZZ Inspection of Lower Intestinal Tract, Via Natural or Artificial Opening Endoscopic (ICD-10-PCS; CPT 45378; principal; 2021-10-12 11:30)
DX: Z12.11 Encounter for screening for malignant neoplasm of colon (principal); Z86.010 Personal history of colon polyps; D12.2 Benign neoplasm of ascending colon
CPT/HCPCS: 45385; 45380; J2704

== ENCOUNTER → 2022-08-28 11:29 | Outpatient (CLI) | payer MEDICARE, SELFPAY ==
[2020-07-01 13:05] VITALS: BMI 20.7
--- NOTE | 2022-08-28 11:29 | DI.MG.S_ITS ---
BILATERAL DIGITAL SCREENING MAMMOGRAM 3D/2D WITH CAD: 08/28/2022 CLINICAL: Routine screening. Comparison is made to exams dated: 08/26/2021 mammogram, 08/08/2020 mammogram, and 09/04/2018 mammogram - [facility]. There are scattered areas of fibroglandular density in both breasts (category b / 25%-50% glandular tissue). Current study was also evaluated with a Computer Aided Detection (CAD) system. No significant masses, calcifications, or other findings are seen in either breast. There has been no significant interval change. IMPRESSION: NEGATIVE There is no mammographic evidence of malignancy. A 1 year screening mammogram is recommended. Based on the Tyrer Cuzick model (a risk assessment model) the patient's lifetime risk is 3.9% and her 10 year risk is 0.0%. According to the ACR, ACS, and NCCN guidelines, an annual breast MRI exam along with mammogram is recommended if the patient's lifetime risk is 20% or greater. This exam was interpreted at Station ID: [id number]. NOTE: For mammograms, a report in lay terms will be sent to the patient. Approximately 15% of breast malignancies will not be visualized mammographically. In the management of a palpable breast mass, a negative mammogram must not discourage biopsy of a clinically suspicious lesion. Electronically Signed By: Jos bedolla/gallo:08/30/2022 08:17:12 letter sent: Normal Exam ACR BI-RADS Category 1: Negative [id number]
== END ==
PROVIDERS: PCP Internal Medicine; Referring Provider Internal Medicine; Visit Provider Internal Medicine
DX: Z12.31 Encounter for screening mammogram for malignant neoplasm of breast (principal)
CPT/HCPCS: 77063; 77067

== ENCOUNTER → 2023-09-07 11:43 | Outpatient (CLI) | payer MEDICARE, SELFPAY ==
[2020-07-01 13:05] VITALS: BMI 20.7
--- NOTE | 2023-09-07 11:45 | DI.MG.S_ITS ---
BILATERAL DIGITAL SCREENING MAMMOGRAM 3D/2D WITH CAD: 09/07/2023 CLINICAL: Routine screening. Comparison is made to exams dated: 08/28/2022 mammogram, 08/26/2021 mammogram, and 08/08/2020 mammogram - [facility]. There are scattered areas of fibroglandular density in both breasts (category b / 25%-50% glandular tissue). Current study was also evaluated with a Computer Aided Detection (CAD) system. No significant masses, calcifications, or other findings are seen in either breast. There has been no significant interval change. IMPRESSION: NEGATIVE There is no mammographic evidence of malignancy. A 1 year screening mammogram is recommended. Based on the Tyrer Cuzick model (a risk assessment model) the patient's lifetime risk is 3.5% and her 10 year risk is 0.0%. According to the ACR, ACS, and NCCN guidelines, an annual breast MRI exam along with mammogram is recommended if the patient's lifetime risk is 20% or greater. This exam was interpreted at Station ID: [id number]. NOTE: For mammograms, a report in lay terms will be sent to the patient. Approximately 15% of breast malignancies will not be visualized mammographically. In the management of a palpable breast mass, a negative mammogram must not discourage biopsy of a clinically suspicious lesion. Electronically Signed By: Yasemin ware/gallo:09/07/2023 15:54:40 letter sent: Normal Exam ACR BI-RADS Category 1: Negative [id number]
== END ==
LOC: MAMMO 11:44
PROVIDERS: PCP Internal Medicine; Referring Provider Internal Medicine; Visit Provider Internal Medicine
DX: Z12.31 Encounter for screening mammogram for malignant neoplasm of breast (principal); R92.323 Mammographic fibroglandular density, bilateral breasts
CPT/HCPCS: 77063; 77067

== ENCOUNTER → 2024-09-25 15:01 | Outpatient (CLI) | payer MEDICARE, SELFPAY ==
[2020-07-01 13:05] VITALS: BMI 20.7
--- NOTE | 2024-09-25 15:02 | DI.MG.S_ITS ---
MM screening mammo BI: 09/25/2024. BI-RADS: 1 CLINICAL: 79-year old female for bilateral screening mammogram. Tyrer-Cuzick lifetime risk of 1.0%. No personal or first-degree family history of breast cancer. Personal history of ovarian cancer. PRIOR EXAMS 09/07/2023, 08/28/2022, 08/26/2021, 08/08/2020, 09/04/2018, 08/29/2017, 05/16/2015. MAMMOGRAPHY TECHNIQUE: 2D and 3D (tomosynthesis) digital mammographic views obtained, with additional images as needed for full coverage. Current study was also evaluated with a Computer Aided Detection (CAD) system. DENSITY B. There are scattered areas of fibroglandular density. MAMMOGRAPHY FINDINGS Bilateral: No suspicious mass, asymmetry, microcalcification, or other abnormality seen. IMPRESSION: * No evidence of malignancy. RECOMMENDATIONS Bilateral * Annual screening mammography. OVERALL ASSESSMENT CATEGORY BI-RADS-1: Negative. The [employer] recommends annual screening mammography beginning at age 40 for women with average risk of breast cancer. ELECTRONICALLY SIGNED: Kajal Osorio M.D. on 09/26/2024 at 04:59:35 PM PT Interpreting Station ID: [id number]
== END ==
PROVIDERS: PCP Internal Medicine; Referring Provider Internal Medicine; Visit Provider Internal Medicine
DX: Z12.31 Encounter for screening mammogram for malignant neoplasm of breast (principal); Z85.43 Personal history of malignant neoplasm of ovary
CPT/HCPCS: 77063; 77067

== ENCOUNTER → 2024-10-12 10:28 | Outpatient (CLI) | payer MEDICARE, SELFPAY ==
[2020-07-01 13:05] VITALS: BMI 20.7
--- NOTE | 2024-10-12 10:29 | DI.CT.S_ITS ---
PROCEDURE: CT ABDOMEN PELVIS W CON INDICATIONS: Epigastric pain TECHNIQUE: After the administration of intravenous contrast, axial sections acquired from the lung bases to the pubic symphysis. Coronal and sagittal reformats were performed. For radiation dose reduction, the following was used: automated exposure control, adjustment of mA and/or kV according to patient size. COMPARISON: [facility], CT, CT CHEST ABDOMEN PELVIS WITH CONTRAST, 09/26/2017, 13:34. [facility], CT, ABDOMEN/PELVIS WITH CONTRAST, 04/27/2016, 15:26. FINDINGS: Image quality: Diagnostic. Lower Chest: Multiple new rounded pulmonary nodules have developed bilaterally, approximately 12, equally distributed at each lung base and the largest measures up to 1.2 cm. This finding was absent on comparison most recent CT that includes those areas 09/26/17. A retrocrural enlarged lymph node is seen rightward of the aorta, measuring 1.8 x 1.9 cm in maximal AP and transverse dimensions. ABDOMEN: Liver: No solid mass. Gallbladder: No radiopaque gallstones or wall thickening. Biliary ducts: No biliary dilation. Pancreas: No ductal dilation. Spleen: Size is within normal limits. Adrenal Glands: No adrenal nodules. Kidneys and Ureters: No hydronephrosis. No solid mass. No complex renal cystic lesion which requires follow up. Stomach and Bowel: Normal colonic caliber, without significant wall thickening. Peritoneum: No abnormal intraperitoneal fluid. No free air. Ventral Wall: No significant ventral hernia. Abdominal Nodes: More inferiorly within the retrocrural space as the upper abdomen is approached additional enlarged nodes are present and a dominant mass is seen within the retroperitoneum on the right near the adrenal gland measuring up to 4.4 x 3.3 cm. Additional bulky adenopathy is seen at the left periaortic retroperitoneum and at the aorta caval space. Several of the confluent lymph nodes show internal dystrophic calcifications at the mid kidney level. There also is mild adenopathy within the root of the small bowel mesentery in the upper abdomen, best seen centered on series 2, image 58 near the crossing transverse duodenum. Vessels: Aorta and inferior vena cava are normal in size. PELVIS: Pelvic Organs: Prior hysterectomy and presumed bilateral oophorectomy.1 Bladder: No bladder wall thickening, accounting for underdistention. Pelvic Nodes: No enlarged lymph nodes. Miscellaneous: No inguinal hernias are seen. Bones: No aggressive osseous abnormality. IMPRESSION: 1. New finding of scattered small pulmonary nodules consistent with development of metastatic disease in the small portion of the lung bases included on this study. The largest pulmonary mass measures up to 1.2 cm and additional chest CT with contrast is recommended for staging purposes. 2. New finding of retrocrural and adjacent upper abdominal retroperitoneal and mesenteric root adenopathy. Dystrophic internal calcifications within areas of confluent adenopathy has developed. No visceral obstruction from this adenopathy is currently found. 3. Postsurgical changes of presumed hysterectomy and bilateral oophorectomy within the pelvis. No significant adenopathy present in this area. Dictated by: Harjeet Busby M.D. on 10/12/2024 at 14:53 Approved by: Harjeet Busby M.D. on 10/12/2024 at 15:07
== END ==
PROVIDERS: PCP Internal Medicine; Referring Provider Internal Medicine; Visit Provider Internal Medicine
DX: R10.13 Epigastric pain (principal); R91.8 Other nonspecific abnormal finding of lung field; R59.0 Localized enlarged lymph nodes
CPT/HCPCS: 74177; Q9967

== ENCOUNTER → 2024-10-17 10:41 | Outpatient (CLI) | payer MEDICARE, SELFPAY ==
[2020-07-01 13:05] VITALS: BMI 20.7
--- NOTE | 2024-10-17 | DI.CT.S_ITS ---
PROCEDURE: CT CHEST W CON INDICATIONS: PULMONARY NODUELS TECHNIQUE: After the administration of intravenous contrast, 5 mm thick sections acquired from the pulmonary apices to the posterior costophrenic angles. 1 mm axial lung, 5 mm thick coronal and sagittal reformats and 7 mm axial MIP were acquired. For radiation dose reduction, the following was used: automated exposure control, adjustment of mA and/or kV according to patient size. COMPARISON: [facility], CT, CT CHEST ABDOMEN PELVIS WITH CONTRAST, 09/26/2017, 13:34. FINDINGS: Image quality: Diagnostic. Thyroid: No thyroid nodules which require sonographic follow up, per consensus guidelines. Axillae: No enlarged lymph nodes. Chest Wall: Unremarkable. Bones: Unremarkable. Lungs and Pleura: Multiple large bilateral large lung nodules, measuring up to 2 cm in the right upper lobe laterally. Heart: Heart size is normal. No pericardial effusion. Thoracic Vessels: The aorta and pulmonary arteries demonstrate normal size. Mediastinum and Masha: Enlarged posterior mediastinal nodes measuring up to 2.2 x 1.5 cm in short axis. There is also necrotic adenopathy seen more superiorly in the retro esophageal region with nodes measuring 1.5 cm short axis. Enlarged left level 6 lateral cervical node measuring 1.4 cm as well as a left supraclavicular node measuring 2.9 x 1.5 cm. Esophagus: No wall thickening. No hiatal hernia. Upper Abdomen: Similar appearance of upper abdominal and retroperitoneal adenopathy as seen on the recent CT of the abdomen.. IMPRESSION: 1. Extensive bilateral lung nodules, most likely metastatic disease. 2. There is also mediastinal and left lower cervical adenopathy, also most likely malignant. Dictated by: Alvin Giordano M.D. on 10/17/2024 at 15:50 Approved by: Alvin Giordano M.D. on 10/17/2024 at 15:58
== END ==
LOC: CT 10:42
PROVIDERS: PCP Internal Medicine; Referring Provider Internal Medicine; Visit Provider Internal Medicine
DX: R91.8 Other nonspecific abnormal finding of lung field (principal); R59.0 Localized enlarged lymph nodes
CPT/HCPCS: 71260; Q9967